=== PATIENT | female | born 1955 ===

== ENCOUNTER 2020-06-19 09:00 | Inpatient (IN) ==
[2021-01-14] MEDS ORDERED: fentaNYL 100 mcg/2 ml 50 MCG/ML VIAL IV PRN (11:23)
[2021-01-14] MEDS ORDERED: DiMENhydriNATE IV 50 mg/ml 1 ml VIAL IV PUSH ONE (11:23)
[2021-01-14] MEDS ORDERED: Ondansetron 4 mg VIAL 2 MG/ML 2 ml VIAL IV PRN (11:23)
[2021-01-14] MEDS ORDERED: Buffered Lidocaine 1% SYRIN 1 ml INTRADERM ONE (11:23)
[2021-01-14] MEDS ORDERED: Naloxone 0.4 mg VIAL 0.4 mg/ml 1 ml VIAL IV PRN (11:23)
[2021-01-14] MEDS ORDERED: Metoclopramide 5 MG/ML VIAL (10 mg) IV PRN (11:23)
[2021-01-14] MEDS ORDERED: HYDROcodone/ACETAMIN 5/325 mg TAB PO PRN (11:23)
[2021-01-14] MEDS ORDERED: Lactated Ringers 1000 ml BAG 1,000 ML IV SCH (12:00)
[2021-01-15] MEDS ORDERED: Dexamethasone IV 4 MG/ML VIAL 1 ml VIAL ONE ×2 (10:56→11:55)
[2021-01-15] MEDS ORDERED: fentaNYL 100 mcg/2 ml 50 MCG/ML VIAL ONE ×4 (10:56→14:58)
[2021-01-15] MEDS ORDERED: Ondansetron 4 mg VIAL 2 MG/ML 2 ml VIAL ONE (10:56)
[2021-01-15] MEDS ORDERED: Lidocaine 2% PF 5 ML VIAL ONE (10:56)
[2021-01-15] MEDS ORDERED: DiMENhydriNATE IV 50 mg/ml 1 ml VIAL ONE (11:04)
[2021-01-15] MEDS ORDERED: Clindamycin 900 MG/D5W BAG 900 MG/50 ML BAG IVPB ONE (11:05)
[2021-01-15 11:42] LABS: INR 1.04 (0.86-1.15)
[2021-01-15] MEDS ORDERED: Ropivacaine 5 MG/ML 20 ML VIAL 0.5% (100 MG) ONE (11:46)
[2021-01-15] MEDS ORDERED: Midazolam 2 mg/2 ml VIAL 1 mg/ml 2 ml VIAL (2 mg) ONE (11:54)
[2021-01-15] MEDS ORDERED: Bupivacaine 0.5% 50 ML MDV VIAL ONE (11:55)
[2021-01-15] MEDS ORDERED: Rocuronium 50 mg VIAL 10 mg/ml 5 ml VIAL (50 mg) ONE (12:51)
[2021-01-15] MEDS ORDERED: fentaNYL 250 mcg/5 ml 50 MCG/ML 5 ml VIAL (250 MCG) ONE (13:17)
[2021-01-15] MEDS ORDERED: Magnesium Hydroxide LIQ 30 ML UDC PO PRN (13:55)
[2021-01-15] MEDS ORDERED: diPHENhydraMINE 25 mg TAB PO PRN (13:55)
[2021-01-15] MEDS ORDERED: Ondansetron ODT 4 mg TAB 4 MG TAB PO PRN (13:55)
[2021-01-15] MEDS ORDERED: Lactulose 30 ml UDC PO PRN (13:55)
[2021-01-15] MEDS ORDERED: diPHENhydraMINE IV 50 MG/ML 1 ml VIAL (BENADRYL) IV PRN (13:55)
[2021-01-15] MEDS ORDERED: Morphine 2 MG/ML SYRINGE IV PRN (13:55)
[2021-01-15] MEDS ORDERED: Ondansetron 4 mg VIAL 2 MG/ML 2 ml VIAL IV PRN (13:55)
[2021-01-15] MEDS ORDERED: HYDROmorphone 1 MG/1 ML SYRINGE ONE (14:58)
[2021-01-15] MEDS: Lactated Ringers 1000 ml BAG 1,000 ML IV SCH (16:52)
[2021-01-15] MEDS: Magnesium Hydroxide LIQ 30 ML UDC PO SCH (20:22)
[2021-01-15] MEDS: Clindamycin 600 MG/D5W BAG 600 MG/50 ML BAG IV SCH (20:22)
[2021-01-16] MEDS: Lactated Ringers 1000 ml BAG 1,000 ML IV SCH (03:46)
[2021-01-16] MEDS: Clindamycin 600 MG/D5W BAG 600 MG/50 ML BAG IV SCH ×2 (03:47→11:29)
[2021-01-16 06:50] LABS: Hematocrit 37 % (35-47); Hemoglobin 12.7 g/dL (12.0-16.0); Mean Platelet Volume 8.9 fL (7.4-10.4); Platelet Count 276 10^3/uL (150-450)
[2021-01-16 07:07] LABS: Calcium 9.5 mg/dL (8.6-10.3); Potassium 4.2 mmol/L (3.5-5.0)
[2021-01-16] MEDS: Magnesium Hydroxide LIQ 30 ML UDC PO SCH (08:24)
[2021-01-16] MEDS ORDERED: Vitamin THERAPEUTIC TAB PO SCH (09:00)
[2021-01-16 11:33] VITALS: BP 147/69
== END 2021-01-16 12:47 | disposition home or self-care (01) | DRG 470 ==
LOC: AA 01-15 10:36 → SSU 01-15 16:50
PROVIDERS: ADMIT Orthopaedic Surgery Adult Reconstructive Orthopaedic Surgery; ATTEND Orthopaedic Surgery Adult Reconstructive Orthopaedic Surgery